=== PATIENT | male | born 1955 | race Caucasian/White ===

== ENCOUNTER 2016-09-14 06:40 | Day surgery (SDC) | payer BC ==
[~2016-09-14] VITALS: Ht 167.6 cm; Wt 105.5 kg
[~2016-09-14 06:40] MED LIST: ASPIRIN 81M81 MG/TA2 PO; EFFIENT10 MG PO; ENERGY PO; MULTIPLE VITAMI1 CAP PO; MVI PO; STRESS TAB PO
[2016-09-14 07:14] VITALS: BP 131/80; PULSE 89; TEMP 98.2
[2016-09-14] MEDS ORDERED: PLAVIX 75MG TAB75 MG PO (07:38)
[2016-09-14] MEDS ORDERED: DIOVAN 160MG160 MG PO (07:39)
[2016-09-14] MEDS ORDERED: PLAQUENIL 200M200 MG PO (07:39)
[2016-09-14] MEDS ORDERED: METHOTREXA2.5 MG/TAB PO (07:40)
[2016-09-14] MEDS ORDERED: AZULFIDINE500 MG/TAB (07:41)
[2016-09-14] MEDS ORDERED: FOLIC ACID 11 MG/TA1 PO (07:42)
[2016-09-14] MEDS ORDERED: NEURONTIN300 MG/CAP PO ×2 (07:42→07:44)
[2016-09-14] MEDS ORDERED: ASPIRIN E.C. 8181 MG PO (07:44)
[2016-09-14] MEDS ORDERED: [UNRECOGNIZED DRUG - OTHER] PO (07:47)
[2016-09-14] MEDS ORDERED: VITAMIND3 5000 PO (07:47)
[2016-09-14] MEDS ORDERED: NATURAL POTASS595 MG PO (07:48)
[2016-09-14] MEDS ORDERED: VITAMIN B122500 MCG SL (07:48)
[2016-09-14] MEDS ORDERED: [UNRECOGNIZED DRUG - OTHER] PO (07:49)
[2016-09-14 08:40] VITALS: BP 113/75; PULSE 93; TEMP 97.3
[2016-09-14 08:55] VITALS: BP 115/80; PULSE 90
[2016-09-14 09:10] VITALS: BP 124/80; PULSE 93
== END 2016-09-14 09:30 | disposition home or self-care (01) ==
LOC: SDCO 06:40
DX: Z12.11 Encounter for screening for malignant neoplasm of colon (principal); Z86.010 Personal history of colon polyps; I10 Essential (primary) hypertension; Z80.0 Family history of malignant neoplasm of digestive organs
CPT/HCPCS: J2250; J3010; J7030

== ENCOUNTER → 2018-08-22 08:30 | Outpatient (RCR) | payer MEDICARE, OTHER ==
[~2018-08-22 08:30] MED LIST changes: +ASPIRIN E.C. 8181 MG PO; +AZULFIDINE500 MG/TAB; +DIOVAN 160MG160 MG PO; +FOLIC ACID 11 MG/TA1 PO; +METHOTREXA2.5 MG/TAB PO; +NATURAL POTASS595 MG PO; +NEURONTIN300 MG/CAP PO; +PLAQUENIL 200M200 MG PO; +PLAVIX 75MG TAB75 MG PO; +VITAMIN B122500 MCG SL; +VITAMIND3 5000 PO; +[UNRECOGNIZED DRUG - OTHER] PO; +[UNRECOGNIZED DRUG - OTHER] PO
== END | disposition home or self-care (01) ==
LOC: WSC 07-25 08:30
DX: M47.26 Other spondylosis with radiculopathy, lumbar region (principal); M43.16 Spondylolisthesis, lumbar region
CPT/HCPCS: G8978-GP; G8979-GP

== ENCOUNTER 2019-08-11 08:30 | Outpatient (RCR) | payer MEDICARE, OTHER | END 2019-08-17 16:29 | disposition home or self-care (01) | LOC: WSC 08:30 | DX: M79.18 Myalgia, other site (principal) ==

== ENCOUNTER 2020-07-05 10:33 | Day surgery (SDC) | payer MEDICARE, OTHER ==
[~2020-07-05] VITALS: Ht 167.6 cm; Wt 104.3 kg
[2020-07-05] VITALS (573 sets, daily range): BP systolic 90–166; BP diastolic 62–95; PULSE 74–106; TEMP 97.3–98; O2SAT 79–100
[2020-07-05 10:53] LABS: HEMATOCRIT 45.8 % (42.0-52.0); HEMOGLOBIN 15.7 g/dl (13.5-18.0); MEAN CELL VOLUME 96 fl (80.0-100.0); MEAN CORPUSCULAR HEMOGLOBIN 33 pg (27.0-31.0); MEAN CORPUSCULAR HGB CONC 34 g/dl (33.0-37.0); MEAN PLATELET VOLUME 9.5 fl (7.4-10.4); PLATELET COUNT 276 K/mm3 (130-400); RED BLOOD COUNT 4.76 M/mm3 (4.20-5.60); REDCELL DISTRIBUTION WIDTH-CV 13.7 % (11.5-14.5)
[2020-07-05] MEDS ORDERED: B COMPLEX #11 TA1 PO (10:57)
[2020-07-05] MEDS ORDERED: IMURAN 50MG TAB50 MG PO (10:58)
[2020-07-05] MEDS ORDERED: XALATAN EYE DROPS OU (11:00)
[2020-07-05 11:01] LABS: PARTIAL THROMBOPLASTIN TIME 34.1 SECONDS (26.0-37.0); PROTHROMBIN TIME 11.1 SECONDS (9.7-12.8)
[2020-07-05] MEDS ORDERED: BENICAR 20MG TA20 MG PO (11:01)
[2020-07-05] MEDS ORDERED: CEROVITE SENIOR1 TA1 PO (11:02)
[2020-07-05] MEDS ORDERED: NATURAL POTASS595 MG PO (11:03)
[2020-07-05] MEDS ORDERED: AZULFIDINE500 MG/TAB PO (11:03)
[2020-07-05] MEDS ORDERED: FLOMAX 0.40.4 MG/CAP PO (11:04)
[2020-07-05] MEDS ORDERED: TURMERIC500 MG PO (11:05)
[2020-07-05] MEDS ORDERED: VITAMINC1000TA PO (11:05)
[2020-07-05 11:06] LABS: CALCIUM 8.9 mg/dL (8.4-10.2); CREATININE, serum 0.71 (0.66-1.25); POTASSIUM 4.2 mmol/L (3.4-5.0)
[2020-07-05] MEDS ORDERED: VITAMIN D250 MCG PO (11:06)
[2020-07-05] MEDS ORDERED: XELJANZ XR11 MG PO (11:07)
[2020-07-05] MEDS ORDERED: NITRO-DUR0.4 MG/PAT TD (11:16)
--- NOTE | 2020-07-05 12:07 | NUR ---
SEE [facility] FOR ALL MEDICATION ADMIN. TIMES, INTRA AND POST SEDATION ASSESSMENTS
--- NOTE | 2020-07-05 15:26 | NUR ---
Pt arrived to ICU via bed to room [address] Pt complains of shortness of breath and chest pressure 5/10. Dr. Fontanez updated and orders received to start nitro at 10mcg/min, give another 25mg of toprol and 50 fentanyl and obtain a 12 lead ekg. Right radial and Right femoral sites stable. Vital signs stable and 12 lead obtained.
--- NOTE | 2020-07-05 16:06 | NUR ---
Pts chest pain is worsening to 5/10. Pt feels pain with inspiration. Dr. Fontanez updated and ordered a limited echo. Ultrasound contacted and echo gone for the day. forms analysis manager contacted and to call staff to see if someone can come in.
--- NOTE | 2020-07-05 16:20 | NUR ---
New orders received to give 1mg of morphine and start indocin 25mg bid. Second call placed to ultrasound and no answer.
--- NOTE | 2020-07-05 16:30 | NUR ---
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 Morphine helped pt relax and he states the sharp pain has improved but still feels pressure in his chest that he rates 5/10.
--- NOTE | 2020-07-05 16:39 | NUR ---
Dr. Fontanez notified that tech is here for echo. CARRASCO to be over to [facility].
--- NOTE | 2020-07-05 16:57 | NUR ---
Dr. Fontanez here and small pericardial effusion noted on echo. Plan to control pain with morphine 1mg Q1hr PRN. Start colchicine, and indocin for pain. Keep head of bed elevated and encourage fluids.
--- NOTE | 2020-07-05 17:09 | NUR ---
5ML of air removed from TR band. Site stable. No bleeding observed.
--- NOTE | 2020-07-05 17:11 | NUR ---
Pharmacy contacted regarding colchicine and indocin. Pharmacy to call MD and then bring medications up to ICU.
--- NOTE | 2020-07-05 17:29 | NUR ---
I attempted to let more air out of the TR band and pt began to ooze from the right radial site. Air placed back into TR band for a total volume of 11ml and we started at 16ml.
--- NOTE | 2020-07-05 17:42 | NUR ---
Pt resting in bed. BP now 90/62. Pt reports pain has remained pressure like and has not increased in intensity. Dr. Fontanez updated and order received to discontinue nitro gtt at this time. Nitro gtt discontinued.
--- NOTE | 2020-07-05 18:35 | NUR ---
Pt resting comfortably in bed. BP stable and chest pressure improved. Right femoral site stable and HOB elevated 45 degrees. Right Radial site stable with 11ml of air in the the TR band at this time. Pt eating PM meal but reports he has a poor appetite. Dr. Fontanez updated on pt condition. No new orders received.
--- NOTE | 2020-07-05 18:42 | NUR ---
2ml of air removed from TR band. Site stable. TR band now with a total of 9ml of air. Wrist splint intact to prevent wrist flexion.
--- NOTE | 2020-07-05 19:22 | NUR ---
Pt ate a small ammount of jellow and fruit this AM. Pt complains of some nausea. Zofran 4mg given.
--- NOTE | 2020-07-05 23:00 | NUR ---
TR BAND OFF AT THIS TIME. NO SWELLING, BLEEDING, OR HEMATOMA NOTED. WILL CONTINUE TO MONITOR.
[2020-07-06] VITALS (445 sets, daily range): BP systolic 108–142; BP diastolic 71–88; PULSE 69–78; TEMP 97.7–97.8; O2SAT 87–100
[2020-07-06 05:34] LABS: HEMATOCRIT 43.1 % (42.0-52.0); HEMOGLOBIN 14.1 g/dl (13.5-18.0); MEAN CELL VOLUME 101 fl (80.0-100.0); MEAN CORPUSCULAR HEMOGLOBIN 33 pg (27.0-31.0); MEAN CORPUSCULAR HGB CONC 33 g/dl (33.0-37.0); PLATELET COUNT 334 K/mm3 (130-400); RED BLOOD COUNT 4.25 M/mm3 (4.20-5.60); REDCELL DISTRIBUTION WIDTH-CV 14.6 % (11.5-14.5)
[2020-07-06 05:43] LABS: CALCIUM 8.9 mg/dL (8.4-10.2); CREATININE, serum 0.99 (0.66-1.25); POTASSIUM 5.2 mmol/L (3.4-5.0)
[2020-07-06 06:07] LABS: LYMPHOCYTE 11 % (20.0-51.0); NEUTROPHILS 82 % (42.0-75.2)
[2020-07-06 06:08] LABS: PLATELET ESTIMATE NORMAL (NORMAL)
[2020-07-06] MEDS ORDERED: LIPITOR 80MG80 MG PO (10:16)
[2020-07-06] MEDS ORDERED: BRILINTA90 MG PO (10:16)
[2020-07-06] MEDS ORDERED: TOPROL XL 25MG25 MG PO (10:17)
[2020-07-06] MEDS ORDERED: COLCRYS0.6 MG PO ×3 (10:18→11:40)
--- NOTE | 2020-07-06 12:00 | NUR ---
Discharge instructions and medications reviewed with patient. Teaching done with pharmacy and nutrition. Ambulatory to POV with driving.
== END 2020-07-06 12:00 | disposition home or self-care (01) ==
LOC: COL.CAR 10:33 → ICU 14:31 → COL.CAR 07-06 12:00
PROVIDERS: Internal Medicine Cardiovascular Disease
DX: I25.110 Atherosclerotic heart disease of native coronary artery with unstable angina pectoris (principal); R94.39 Abnormal result of other cardiovascular function study; I31.3 Pericardial effusion (noninflammatory)
CPT/HCPCS: C9600; J0583; J1644; J2250; J2270; J2405; J3010; J7500

== ENCOUNTER → 2020-07-11 | Outpatient (CLI) | payer MEDICARE ==
[~2020-07-11] MED LIST changes: +AZULFIDINE500 MG/TAB PO; +B COMPLEX #11 TA1 PO; +BENICAR 20MG TA20 MG PO; +BRILINTA90 MG PO; +CEROVITE SENIOR1 TA1 PO; +COLCRYS0.6 MG PO; +FLOMAX 0.40.4 MG/CAP PO; +IMURAN 50MG TAB50 MG PO; +LIPITOR 80MG80 MG PO; +NITRO-DUR0.4 MG/PAT TD; +TOPROL XL 25MG25 MG PO; +TURMERIC500 MG PO; +VITAMIN D250 MCG PO; +VITAMINC1000TA PO; +XALATAN EYE DROPS OU; +XELJANZ XR11 MG PO
== END ==
LOC: COL.PUL 06:59
DX: R06.00 Dyspnea, unspecified (principal); Z87.891 Personal history of nicotine dependence

== ENCOUNTER 2020-11-07 16:21 | Outpatient (RCR) | payer MEDICARE, OTHER | END 2020-11-09 06:06 | disposition home or self-care (01) | LOC: COL.CR | DX: Z48.812 Encounter for surgical aftercare following surgery on the circulatory system (principal); Z95.5 Presence of coronary angioplasty implant and graft ==

== ENCOUNTER 2021-02-15 09:29 | Emergency (ER) | payer MEDICARE, OTHER ==
[~2021-02-15] VITALS: Ht 167.6 cm; Wt 102.7 kg
[2021-02-15 09:38] VITALS: TEMP 97.7
[2021-02-15 10:49] LABS: HEMATOCRIT 39.2 % (42.0-52.0); HEMOGLOBIN 13.1 g/dl (13.5-18.0); MEAN CELL VOLUME 100 fl (80.0-100.0); MEAN CORPUSCULAR HEMOGLOBIN 33 pg (27.0-31.0); MEAN CORPUSCULAR HGB CONC 33 g/dl (33.0-37.0); MEAN PLATELET VOLUME 9.7 fl (7.4-10.4); PLATELET COUNT 196 K/mm3 (130-400); RED BLOOD COUNT 3.94 M/mm3 (4.20-5.60); REDCELL DISTRIBUTION WIDTH-CV 13.4 % (11.5-14.5)
[2021-02-15 11:00] LABS: BAND 5 % (0-10); EOSINOPHIL 1 % (0-4); LYMPHOCYTE 10 % (20.0-51.0); NEUTROPHILS 76 % (42.0-75.2)
[2021-02-15 11:01] LABS: PLATELET ESTIMATE NORMAL (NORMAL)
[2021-02-15 11:02] LABS: ALANINE AMINOTRANSFERASE 26 U/L (4-49); ALBUMIN 2.9 gm/dL (3.5-5.0); ALKALINE PHOSPHATASE 43 U/L (50-136); ANION GAP 2 mmol/L (7-16); AST,SGOT 30 U/L (15-37); BILIRUBIN,TOTAL 0.3 mg/dL (0.0-1.0); BLOOD UREA NITROGEN 13 mg/dL (9-20); CALCIUM 8.8 mg/dL (8.4-10.2); CARBON DIOXIDE 22 mmol/L (22-30); CHLORIDE 110 mmol/L (98-107); CREATININE, serum 0.59 (0.66-1.25); GLUCOSE 123 mg/dL (74-106); LIPASE 153 U/L (23-300); POTASSIUM 4.3 mmol/L (3.4-5.0); SODIUM 134 mmol/L (137-145); TOTAL PROTEIN 5.2 gm/dL (6.4-8.2)
[2021-02-15 11:03] LABS: C-REACTIVE PROTEIN < 0.5 mg/dL (0.0-0.9)
[2021-02-15] MEDS ORDERED: NORCO 325 MG-51 TAB PO (12:11)
[2021-02-15 13:13] LABS: COLLECTION METHOD CLEAN CATCH
[2021-02-15 13:27] LABS: MUCOUS Present /lpf; PH 7 (5-8); SQUAMOUS EPITHELIAL None Seen /hpf; URINE APPEARANCE Clear; URINE BACTERIA None Seen /hpf; URINE BILIRUBIN Negative (NEGATIVE); URINE BLOOD Negative (NEGATIVE); URINE COLOR Amber; URINE GLUCOSE Negative (NEGATIVE); URINE KETONE Trace (NEGATIVE); URINE LEUKOCYTE ESTERASE Negative (NEGATIVE); URINE NITRATE Negative (NEGATIVE); URINE PROTEIN(semi-quant) Negative (NEGATIVE); URINE RBC 20-50 /hpf; URINE UROBILINOGEN Negative (NEGATIVE)
[2021-02-15 13:30] VITALS: BP 149/81; PULSE 75
== END 2021-02-15 13:30 | disposition home or self-care (01) ==
LOC: COL.ER 09:29
PROVIDERS: Family Medicine
DX: N20.2 Calculus of kidney with calculus of ureter (principal); I25.10 Atherosclerotic heart disease of native coronary artery without angina pectoris; I73.9 Peripheral vascular disease, unspecified; Z79.02 Long term (current) use of antithrombotics/antiplatelets; Z79.82 Long term (current) use of aspirin
CPT/HCPCS: J1885; J2270; J2405; J7120; Q9967

== ENCOUNTER 2021-08-25 18:45 | Emergency (ER) | payer MEDICARE, OTHER ==
[~2021-08-25] VITALS: Ht 167.6 cm; Wt 104.5 kg
[~2021-08-25 18:45] MED LIST changes: +NORCO 325 MG-51 TAB PO
[2021-08-25 18:56] VITALS: TEMP 98.4
[2021-08-25 19:16] LABS: HEMATOCRIT 43.6 % (42.0-52.0); HEMOGLOBIN 14.5 g/dl (13.5-18.0); MEAN CELL VOLUME 98 fl (80.0-100.0); MEAN CORPUSCULAR HEMOGLOBIN 33 pg (27-31); MEAN CORPUSCULAR HGB CONC 33 g/dl (33.0-37.0); MEAN PLATELET VOLUME 9.6 fl (7.4-10.4); PLATELET COUNT 259 K/mm3 (130-400); RED BLOOD COUNT 4.46 M/mm3 (4.20-5.60); REDCELL DISTRIBUTION WIDTH-CV 13.7 % (11.5-14.5)
[2021-08-25 19:23] LABS: PROTHROMBIN TIME 10.8 SECONDS (9.7-12.8)
[2021-08-25 19:26] LABS: PARTIAL THROMBOPLASTIN TIME 30.4 SECONDS (26.0-37.0)
[2021-08-25 19:34] LABS: ALANINE AMINOTRANSFERASE 25 U/L (0-55); ALBUMIN 3.7 gm/dL (3.4-4.8); ALKALINE PHOSPHATASE 57 U/L (40-150); ANION GAP 12 mmol/L (7-16); AST,SGOT 30 U/L (5-34); BILIRUBIN,TOTAL 0.3 mg/dL (0.2-1.2); BLOOD UREA NITROGEN 15 mg/dL (8-26); CALCIUM 9.1 mg/dL (8.4-10.2); CARBON DIOXIDE 21 mmol/L (23-31); CHLORIDE 108 mmol/L (98-107); CREATININE, serum 0.78 mg/dL (0.72-1.25); GLUCOSE 100 mg/dL (70-99); POTASSIUM 4.1 mmol/L (3.5-4.5); SODIUM 141 mmol/L (136-145); TOTAL PROTEIN 6.6 gm/dL (6.2-8.1)
[2021-08-25 19:38] LABS: BAND 4 % (0-10); EOSINOPHIL 1 % (0-4); LYMPHOCYTE 25 % (20.0-51.0); NEUTROPHILS 59 % (42.0-75.2); PLATELET ESTIMATE NORMAL (NORMAL)
[2021-08-25 19:42] LABS: TROPONIN-I < 0.010 ng/mL (0.00-0.033)
[2021-08-25 22:31] VITALS: BP 181/94; PULSE 67
== END 2021-08-25 22:31 | disposition home or self-care (01) ==
LOC: COL.ER 18:45
PROVIDERS: Emergency Medicine
DX: R06.00 Dyspnea, unspecified (principal); I25.10 Atherosclerotic heart disease of native coronary artery without angina pectoris; Z20.822 Contact with and (suspected) exposure to COVID-19; Z79.82 Long term (current) use of aspirin
CPT/HCPCS: J2405; Q9967

== ENCOUNTER 2021-10-05 10:30 | Outpatient (RCR) | payer MEDICARE, OTHER | END 2021-10-09 | disposition home or self-care (01) | LOC: WSPT | DX: S46.011A Strain of muscle(s) and tendon(s) of the rotator cuff of right shoulder, initial encounter (principal); M67.88 Other specified disorders of synovium and tendon, other site ==

== ENCOUNTER → 2021-11-09 | Outpatient (RCR) | payer MEDICARE, OTHER | END | disposition home or self-care (01) | LOC: WSPT | DX: S46.011A Strain of muscle(s) and tendon(s) of the rotator cuff of right shoulder, initial encounter (principal) ==

== ENCOUNTER 2021-12-07 10:30 | Outpatient (RCR) | payer MEDICARE, OTHER | END 2021-12-09 | disposition home or self-care (01) | LOC: WSPT | DX: S46.011A Strain of muscle(s) and tendon(s) of the rotator cuff of right shoulder, initial encounter (principal) ==

== ENCOUNTER 2022-01-04 10:30 | Outpatient (RCR) | payer MEDICARE, OTHER | END 2022-01-09 | disposition home or self-care (01) | LOC: WSPT | DX: S46.011A Strain of muscle(s) and tendon(s) of the rotator cuff of right shoulder, initial encounter (principal); Z98.890 Other specified postprocedural states ==

== ENCOUNTER 2023-08-01 16:22 | Outpatient (RCR) | payer MEDICARE, OTHER ==
[~2023-08-01 16:22] MED LIST changes: +JARDIANCE25 PO; +PREDNISONE10 MG PO; +QUESTRAN4 GM/9 GM PO
== END 2023-08-11 | disposition still patient (30) ==
LOC: COL.CR
DX: J84.112 Idiopathic pulmonary fibrosis (principal)
CPT/HCPCS: G0239

== ENCOUNTER 2023-08-12 12:00 | Outpatient (RCR) | payer MEDICARE, OTHER | END 2023-09-11 | disposition home or self-care (01) | LOC: COL.CR | DX: J84.89 Other specified interstitial pulmonary diseases (principal) | CPT/HCPCS: G0239 ==

== ENCOUNTER 2024-02-06 09:00 | Outpatient (RCR) | payer MEDICARE, OTHER | END 2024-02-09 | LOC: WSOT | DX: M25.531 Pain in right wrist (principal); M25.532 Pain in left wrist; Z98.890 Other specified postprocedural states ==

== ENCOUNTER 2024-05-19 07:05 | Day surgery (SDC) | payer MEDICARE, OTHER ==
[2024-05-19] VITALS (8 sets, daily range): BP systolic 125–152; BP diastolic 67–90; PULSE 76–84; TEMP 97.8
[~2024-05-19] VITALS: Ht 167.6 cm; Wt 100.9 kg
[~2024-05-19 07:05] MED LIST changes: +MASON NATURAL2000 IU PO; -VITAMIND3 5000 PO
[2024-05-19] MEDS ORDERED: 1/2 NS 1,000 ML IV SCH (07:15)
[2024-05-19] MEDS ORDERED: TOPROL XL 25MG25 MG PO (08:08)
[2024-05-19] MEDS ORDERED: KLOR-CON 1010 MEQ PO (08:11)
[2024-05-19] MEDS ORDERED: BUMEX 1MG TA1 MG/TA1 PO (08:12)
[2024-05-19] MEDS ORDERED: COLCRYS0.6 MG PO (08:14)
[2024-05-19] MEDS ORDERED: NITROSTAT0.4 MG/TAB SL (08:14)
[2024-05-19 08:16] LABS: CALCIUM 9.8 mg/dL (8.4-10.2); CREATININE, serum 0.78 mg/dL (0.72-1.25); HEMATOCRIT 47.7 % (42.0-52.0); MEAN CELL VOLUME 94 fl (80.0-100.0); MEAN CORPUSCULAR HEMOGLOBIN 31 pg (27-31); MEAN CORPUSCULAR HGB CONC 34 g/dl (33.0-37.0); PLATELET COUNT 216 K/mm3 (130-400); POTASSIUM 4.2 mEq/L (3.5-4.5); RED BLOOD COUNT 5.09 M/mm3 (4.20-5.60); REDCELL DISTRIBUTION WIDTH-CV 13.7 % (11.5-14.5)
--- NOTE | 2024-05-19 09:42 | NUR ---
See [facility] report for procedural sedation/notes
[2024-05-19] MEDS ORDERED: fentaNYL 50 MCG/ML 2 ML VIAL IV SCH (09:50)
--- NOTE | 2024-05-19 10:00 | NUR ---
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 pt will be bedrest 2 hours, takes sips of juice, call light in reach, in room
--- NOTE | 2024-05-19 10:06 | NUR ---
Pt back to EU 12 - bedside handoff performed with Carina Ceron RN: vitals initiated and stable, rt groin site assessed and stable-dressing CDI, call light in reach, at bedside
--- NOTE | 2024-05-19 10:45 | NUR ---
con't same, no c/o or requests
--- NOTE | 2024-05-19 12:15 | NUR ---
pt sits on side of bed, tolerates well, dressing remains clean, dry, no swelling. reviewed discharge inst. with pt on meds, followup appt, precautions and activity with site and moderate sedation with verbal understanding. iv d'cd intact, pt up in room dressed, ate snack, discharged via w/c to car with at 1230
== END 2024-05-19 12:30 | disposition home or self-care (01) ==
LOC: COL.CAR 07:05
PROVIDERS: Internal Medicine Cardiovascular Disease
DX: R06.02 Shortness of breath (principal); R06.09 Other forms of dyspnea
CPT/HCPCS: C1769; C1894; J3010